=== PATIENT | male | born 1960 | race Caucasian/White ===

== ENCOUNTER 2017-07-16 16:15 | Emergency (ER) | payer SELFPAY ==
[2017-07-16 16:56] LABS: Hematocrit 40.2 % (42.0-52.0); Mean Cell Volume 86.3 fl (78-100); Mean Corpuscular Hgb Conc 34.8 g/dl (32-36); Mean Platelet Volume 10.8 fl (6.0-9.5); Neutrophil # 11.3 K/mm3 (1.3-6.0); Neutrophil % 74.5 % (42-75.0); Platelet Count 308 K/mm3 (150-450); Red Blood Count 4.66 M/mm3 (4.7-6.0); Red Cell Distribution Width 12.5 % (11.5-14.0); White Blood Count 15.2 K/mm3 (4.0-10.5)
[2017-07-16 17:13] LABS: Albumin * 4.2 gm/dl (3.4-5.0); Anion Gap 17.4 mmol/L (6.8-13.8); BUN/Creatinine Ratio 25.9 (9.0-21.6); Bilirubin, Total 0.4 mg/dL (0.0-1.1); CRP 3.6 mg/dL (0.0-0.9); Ca. Corrected For Albumin 8.4 mg/dL (8.4-10.2); Calcium * 8.9 mg/dL (7.9-10.9); Carbon Dioxide 25.5 mmol/L (24-32.6); Magnesium 1.8 mg/dL (1.2-2.8); Potassium 3.9 mmol/L (3.4-4.6); Total Protein 7.9 gm/dL (6.2-8.2)
--- NOTE | 2017-07-16 17:32 | ERNOTE ---
Lower Extremity HPI - General Lower Extremities Pain: knee: right - erythema, swelling and pain Time Seen by Provider: 07/16/17 16:30 Source: patient Exam Limitations: no limitations - Immun/Allergies/Home Medications Immunizations: IMMUNIZATION HX Immunizations Up to Date Yes History of Influenza Vaccine No Hx Pneumococcal Vaccination No Allergies/Adverse Reactions: Allergies Allergy/AdvReac Type Severity Reaction Status Date / Time No Known Allergies Allergy Unverified 07/16/17 16:29 Home Medications: HOME MEDICATIONS Dicloxacillin Sodium 500 mg PO Q6H #28 cap 07/16/17 [Last Taken Unknown] Naproxen [Naprosyn] 500 mg PO BID #60 tablet 07/16/17 [Last Taken Unknown] traMADol HCL [Ultram] 50 mg PO QID PRN #20 tablet 07/16/17 [Last Taken Unknown] - History of Present Illness Narrative: Patient complains of considerable pain in the right knee around the prepatellar area and infrapatellar region. Patient complains of painful weightbearing and considerable difficulty kneeling. Occurred: other - swelling and pain and been increasing over the last 24 hours Method of Injury: Reports: no apparent injury Loss of Consciousness: Reports: no loss of consciousness Modifying Factors - (Improves): Reports: rest Modifying Factors - (Worsens): Reports: movement Associated Symptoms: Reports: unable to bear weight - painful weightbearing Other Injuries: Reports: none Review of Systems - Review of Systems Constitutional: Present: See HPI EYE: Present: no symptoms reported ENT: Present: no symptoms reported Respiratory: Present: no symptoms reported Cardiology: Present: no symptoms reported Gastrointestinal/Abdominal: Present: no symptoms reported Genitourinary: Present: no symptoms reported Musculoskeletal: Present: joint pain, joint swelling Skin: Present: other - erythema around the right knee Neurological: Present: no symptoms reported Endocrine: Present: no symptoms reported Hematologic/Lymphatic: Present: no symptoms reported Psych: Present: no symptoms reported - Patient's Past Medical History Patient History - Medical: No pertinent hx Patient History - Cardiac/Respiratory: No pertinent hx Patient History - Cancer: No Hx of Cancer Patient History - Surgical Procedures: Hernia Repair Patient History - Other: None - Social History Living Situations: home Psych History: No pertinent hx Smoking Status: Current every day smoker Alcohol Use: occasionally - Immunizations Immunizations Up to Date: Yes Hx Pneumococcal Vaccination: No History of Influenza Vaccine: No Physical Exam - Physical Exam General Appearance: Present: wd/wn, alert, moderate distress Head Exam: Present: normal inspection Eye Exam: Normal inspection: bilateral, PERRL: bilateral Ears, Nose, Throat: Present: normal ENT inspection, H, normal pharynx Neck: Present: normal inspection, nontender Respiratory: Present: no respiratory distress, normal breath sounds, no accessory muscle use, chest nontender, lungs clear Cardiovascular/Chest: Present: regular rate, rhythm, no murmur, normal peripheral pulses Gastrointestinal/Abdominal: Present: normal bowel sounds, nontender, nondistended, soft, no organomegaly Rectal Exam: Present: deferred Back Exam: Present: normal inspection, normal range of motion Extremity Exam: Present: decreased range of motion, joint redness, extremity edema, other - the overwhelming preponderance of the swelling and erythema appears to be centered over the prepatellar bursa Neurological Exam: Present: alert, oriented, normal mood/affect Skin Exam: Present: warm/dry, other - erythema around the right knee joint Lymphatic Exam: Present: no adenopathy ED Progress - Results and Orders Patient's Lab Results:: I have reviewed the patient's lab results. - Vital Signs Patient's Vital Signs:: I have reviewed the patient's vital signs. Vital Signs: Vital Signs 07/16/17 16:23 Temperature 38.2 C H Pulse Rate 119 H Respiratory 17 Rate Blood Pressure 139/94 O2 Sat by Pulse 99 Oximetry - X-Ray X-Ray #1 X-Ray: knee Interpretation: Reviewed by me - Progress/Reassessment Chief Complaint: Lower Extremity Pain/ Injury Procedures Right Knee Anesthesia: 1% Lidocaine I & D Prep: betadine prep Blade Size: 16 K needle was placed into the right prepatellar bursa and moderate serosanguineous purulent material was removed and sent to lab Findings and Actions: purulent drainage moderate, cultures obtained, gram stain Complications: Pt panda procedure well Plan - Plan Plan: Cultures are sent to the lab, as well as cell count and Gram stain. Patient be started on antibiotics and he will call the orthopedic clinic for appointment. Departure Clinical Impression: Prepatellar bursitis, right knee - Departure Disposition: Home self-care Condition: Good Instructions: Prepatellar Bursitis With Rehab-SportsMed Additional Instructions: call Dr. Breder for an appointment in the AM Referrals: Andrew Romero MD [Staff Physician] - Prescriptions: Dicloxacillin Sodium 500 mg PO Q6H #28 cap Naproxen [Naprosyn] 500 mg PO BID #60 tablet traMADol HCL [Ultram] 50 mg PO QID PRN #20 tablet PRN Reason: Moderate Pain
[2017-07-16] MEDS ORDERED: MORPHINE SULFATE 4 MG/ML SYRG SC ONE (18:34)
[2017-07-16] MEDS ORDERED: MORPHINE SULFATE 4 MG/ML SYRG ONE (18:35)
[2017-07-16 18:37] VITALS: BP 144/96
[2017-07-16] MEDS ORDERED: AMOX TR/POTASSIUM CLAVULANATE 875 MG TABLET PO ONE (19:03)
[2017-07-16 19:05] LABS: Body Fluid Appearance TURBID (CLEAR); Body Fluid Color YELLOW (COLORLESS)
[2017-07-16] MEDS ORDERED: AMOX TR/POTASSIUM CLAVULANATE 875 MG TABLET ONE (19:10)
== END 2017-07-16 19:17 | disposition home or self-care (01) ==
LOC: ER 16:15
PROC: 0M9N3ZZ Drainage of Right Knee Bursa and Ligament, Percutaneous Approach (ICD-10-PCS; principal; 2017-07-16)
DX: M70.41 Prepatellar bursitis, right knee (principal); F17.200 Nicotine dependence, unspecified, uncomplicated

== ENCOUNTER 2017-07-28 13:56 | Inpatient (IN) | payer SELFPAY ==
[2017-07-28] MEDS ORDERED: PROMETHAZINE HCL 5 MG in DEXTROSE 5 % IN WATER 50 ML IV PRN ×2 (14:20)
[2017-07-28] MEDS ORDERED: MAGNESIUM HYDROXIDE 30 ML UDC PO PRN (14:20)
[2017-07-28] MEDS ORDERED: diphenhydrAMINE HCL 50 MG/ML VIAL IV PRN (14:20)
[2017-07-28] MEDS ORDERED: ACETAMINOPHEN 500 MG TABLET PO PRN (14:20)
[2017-07-28] MEDS ORDERED: ONDANSETRON HCL/PF 2 MG/ML VIAL IV PRN (14:20)
[2017-07-28] MEDS ORDERED: oxyCODONE HCL/ACETAMINOPHEN 1 TAB TABLET PO PRN (14:21)
[2017-07-28] MEDS: oxyCODONE HCL/ACETAMINOPHEN 1 TAB TABLET PO PRN ×2 (15:35→19:37)
[2017-07-28 17:47] LABS: Hematocrit 39.6 % (42.0-52.0); Hemoglobin 13.8 gm/dL (13.5-18.0); Mean Cell Volume 86.5 fl (78-100); Mean Corpuscular Hemoglobin 30.1 pg (27-31); Mean Corpuscular Hgb Conc 34.8 g/dl (32-36); Mean Platelet Volume 10.3 fl (6.0-9.5); Neutrophil # 6.2 K/mm3 (1.3-6.0); Neutrophil % 60.6 % (42-75.0); Platelet Count 395 K/mm3 (150-450); Red Blood Count 4.58 M/mm3 (4.7-6.0); Red Cell Distribution Width 12.4 % (11.5-14.0); White Blood Count 10.3 K/mm3 (4.0-10.5)
[2017-07-28] MEDS: VANCOMYCIN HCL 1.25 GM in NORMAL SALINE 250 ML IV SCH (18:03)
[2017-07-28 18:04] LABS: Anion Gap 15.2 mmol/L (6.8-13.8); BUN/Creatinine Ratio 25.9 (9.0-21.6); CRP 4.7 mg/dL (0.0-0.9); Calcium * 9.4 mg/dL (7.9-10.9); Estimated Creat Clear 101.8; Potassium 4.2 mmol/L (3.4-4.6)
[2017-07-28] MEDS: NICOTINE 14 MG PATC TD SCH (18:04)
[2017-07-28] MEDS: SENNOSIDES/DOCUSATE SODIUM 1 TAB TABLET PO SCH (21:33)
[2017-07-29] MEDS ORDERED: VANCOMYCIN HCL 1 GM in NORMAL SALINE 250 ML IV SCH (00:21)
[2017-07-29] MEDS: oxyCODONE HCL/ACETAMINOPHEN 1 TAB TABLET PO PRN ×5 (04:38→22:00)
[2017-07-29] MEDS: VANCOMYCIN HCL 1.25 GM in NORMAL SALINE 250 ML IV SCH ×2 (04:43→17:48)
[2017-07-29] MEDS: NICOTINE 14 MG PATC TD SCH ×2 (08:36→17:46)
[2017-07-29] MEDS: SENNOSIDES/DOCUSATE SODIUM 1 TAB TABLET PO SCH (21:13)
[2017-07-29] MEDS: LACTOBACILLUS ACIDOPHILUS 100 CAP BTL PO SCH (21:13)
[2017-07-29] MEDS: NYSTATIN 15 APPL BTL TP SCH (21:14)
[2017-07-30] MEDS: VANCOMYCIN HCL 1.25 GM in NORMAL SALINE 250 ML IV SCH (05:25)
[2017-07-30] MEDS: oxyCODONE HCL/ACETAMINOPHEN 1 TAB TABLET PO PRN ×5 (05:53→23:35)
[2017-07-30] MEDS: LACTOBACILLUS ACIDOPHILUS 100 CAP BTL PO SCH ×2 (08:03→20:05)
[2017-07-30] MEDS: NYSTATIN 15 APPL BTL TP SCH ×2 (09:02→22:28)
--- NOTE | 2017-07-30 09:21 | PN ---
Subjective - Date and Time Seen Date: 07/30/17 Time: 08:10 Subjective Narrative: Pt reports no acute events, he has been up walking. His pain is still consistent , has not significantly improved. Objective - Vitals Vitals: Last Vital Signs Temp 36.4 C L 07/30/17 08:06 Pulse 88 07/30/17 08:06 Resp 18 07/30/17 08:06 BP 142/87 07/30/17 08:06 Pulse Ox 97 07/30/17 08:06 - Abnormal Lab Findings Abnormal Lab Findings: Laboratory Last Values WBC 10.3 K/mm3 (4.0-10.5) 07/28/17 17:44 RBC 4.58 M/mm3 (4.7-6.0) L 07/28/17 17:44 Hgb 13.8 gm/dL (13.5-18.0) 07/28/17 17:44 Hct 39.6 % (42.0-52.0) L 07/28/17 17:44 MCV 86.5 fl (78-100) 07/28/17 17:44 MCH 30.1 pg (27-31) 07/28/17 17:44 MCHC 34.8 g/dl (32-36) 07/28/17 17:44 RDW 12.4 % (11.5-14.0) 07/28/17 17:44 Plt Count 395 K/mm3 (150-450) 07/28/17 17:44 MPV 10.3 fl (6.0-9.5) H 07/28/17 17:44 Immature Gran % (Auto) 0.30 % (0.001-0.429) 07/28/17 17:44 Immature Gran # (Auto) 0.03 K/mm3 (0.000-0.0310) 07/28/17 17:44 Neutrophils % 60.6 % (42-75.0) 07/28/17 17:44 Lymphocytes % 27.0 % (20-51) 07/28/17 17:44 Monocytes % 9.7 % (0.0-9) H 07/28/17 17:44 Eosinophils % 1.7 % (0.0-3.0) 07/28/17 17:44 Basophils % 0.7 % (0.0-1.0) 07/28/17 17:44 Nucleated RBC % 0.0 k/mm3 (0-1) 07/28/17 17:44 Neutrophils # 6.2 K/mm3 (1.3-6.0) H 07/28/17 17:44 Lymphocytes # 2.8 k/mm3 (1.5-3.5) 07/28/17 17:44 Monocytes # 1.0 k/mm3 (0.0-1.0) 07/28/17 17:44 Eosinophils # 0.2 k/mm3 (0.0-0.7) 07/28/17 17:44 Absolute Basophils 0.1 k/mm3 (0.0-0.1) 07/28/17 17:44 ESR 65 mm/hr (0-10) H 07/28/17 17:44 Sodium 138 mmol/L (132-142) 07/28/17 17:44 Plasma Sodium 138 mmol/L (130-142) 07/28/17 17:44 Potassium 4.2 mmol/L (3.4-4.6) 07/28/17 17:44 Chloride 100 mmol/L (97-106) 07/28/17 17:44 Carbon Dioxide 27.0 mmol/L (24-32.6) 07/28/17 17:44 Anion Gap 15.2 mmol/L (6.8-13.8) H 07/28/17 17:44 BUN 21 mg/dL (6-23) 07/28/17 17:44 Creatinine 0.81 mg/dL (0.4-1.4) 07/28/17 17:44 Est GFR (Non-Af Amer) 105 mL/min (60-130) 07/28/17 17:44 BUN/Creatinine Ratio 25.9 (9.0-21.6) H 07/28/17 17:44 Random Glucose 100 mg/dL (70-110) 07/28/17 17:44 Calcium 9.4 mg/dL (7.9-10.9) 07/28/17 17:44 C-Reactive Prot, Quant 4.7 mg/dL (0.0-0.9) H 07/28/17 17:44 - Exam Constitutional: Present: Alert, Oriented x3, Cooperative, No distress Respiratory: Present: no respiratory distress Extremity: Present: other - RLE--> area of moderate errythema and edema located over right prepatellar region, SILT, distal pulses 2+, ttp over patellar tendon Eye contact: Present: cooperative, good eye contact Thoughts: Present: normal thought pattern Assessment/Plan Plan Narrative: -56 y/o male presents with infectious prepatellar bursitis on 07/28, was admitted for IV antibiotics and observation - IV vancomycin for infectious prepatellar bursitis, condition has not shown significant improvement with addition of IV abx, will continue to monitor, re- evaluate later today, determine if surgical intervention is warranted - Continue pain control with oral pain medication - Status may be changed to inpatient status, due to use of continued abx and concern for the need of surgical intervention - WBAT - PO diet as tolerated - Problems/Diagnosis (1) Prepatellar bursitis, right knee Problem: Acute
--- NOTE | 2017-07-30 15:16 | PN ---
Subjective - Date and Time Seen Date: 07/29/17 Time: 08:00 Subjective Narrative: Swelling has reaccumulated as of this morning. Pain is the same as it was yesterday. No other complaints. Objective - Vitals Vitals: Last Vital Signs Temp 36.4 C L 07/30/17 14:03 Pulse 90 07/30/17 14:03 Resp 18 07/30/17 14:03 BP 155/95 07/30/17 14:03 Pulse Ox 97 07/30/17 14:03 - Exam Exam Narrative: Gen: A&O x3, NAD Resp: breathing non-labored on RA MSK: RLE--> pre-patellar bursal fluid collection with overlying erythema of skin , erythema extending distally - unchanged from clinic, diffuse tenderness over anterior knee, no effusion, minimal pain with knee ROM, SILT, distal pulses palpable Assessment/Plan Plan Narrative: 56 yo M w/ infectious R pre-patellar bursitis. - continue IV Vancomycin and monitor clinical progress - if no clinical improvement tomorrow, will consider surgical drainage on - oral pain meds - WBAT, ROM as tolerated - SCDs in bed - dispo: continue inpatient care - Problems/Diagnosis (1) Prepatellar bursitis, right knee Problem: Acute
[2017-07-30] MEDS: ceFAZolin SODIUM/DEXTROSE,ISO 2 GM/50 ML BAG IV SCH ×2 (15:23→23:36)
[2017-07-30] MEDS ORDERED: VANCOMYCIN HCL LEVEL XX ONE (17:00)
[2017-07-30] MEDS: NICOTINE 14 MG PATC TD SCH (17:02)
[2017-07-30] MEDS: SENNOSIDES/DOCUSATE SODIUM 1 TAB TABLET PO SCH (20:05)
[2017-07-30] MEDS: MAG HYDROX/ALUMINUM HYD/SIMETH 30 ML UDC PO PRN (22:28)
[2017-07-31] MEDS: oxyCODONE HCL/ACETAMINOPHEN 1 TAB TABLET PO PRN ×4 (06:52→20:57)
[2017-07-31] MEDS: ceFAZolin SODIUM/DEXTROSE,ISO 2 GM/50 ML BAG IV SCH ×3 (07:16→23:10)
[2017-07-31] MEDS: LACTOBACILLUS ACIDOPHILUS 100 CAP BTL PO SCH ×2 (08:46→21:37)
[2017-07-31] MEDS: NYSTATIN 15 APPL BTL TP SCH ×2 (08:47→21:37)
--- NOTE | 2017-07-31 09:01 | PN ---
Subjective - Date and Time Seen Date: 07/31/17 Time: 08:57 Objective Objective Narrative: Patient has had no acute events. He reports his pain remains constant. He reports his knee does not seem to have improved. He has no other compliants. - Vitals Vitals: Last Vital Signs Temp 36.5 C 07/31/17 08:08 Pulse 84 07/31/17 08:08 Resp 17 07/31/17 08:08 BP 136/75 07/31/17 08:08 Pulse Ox 96 07/31/17 08:08 - Abnormal Lab Findings Abnormal Lab Findings: Laboratory Last Values WBC 10.3 K/mm3 (4.0-10.5) 07/28/17 17:44 RBC 4.58 M/mm3 (4.7-6.0) L 07/28/17 17:44 Hgb 13.8 gm/dL (13.5-18.0) 07/28/17 17:44 Hct 39.6 % (42.0-52.0) L 07/28/17 17:44 MCV 86.5 fl (78-100) 07/28/17 17:44 MCH 30.1 pg (27-31) 07/28/17 17:44 MCHC 34.8 g/dl (32-36) 07/28/17 17:44 RDW 12.4 % (11.5-14.0) 07/28/17 17:44 Plt Count 395 K/mm3 (150-450) 07/28/17 17:44 MPV 10.3 fl (6.0-9.5) H 07/28/17 17:44 Immature Gran % (Auto) 0.30 % (0.001-0.429) 07/28/17 17:44 Immature Gran # (Auto) 0.03 K/mm3 (0.000-0.0310) 07/28/17 17:44 Neutrophils % 60.6 % (42-75.0) 07/28/17 17:44 Lymphocytes % 27.0 % (20-51) 07/28/17 17:44 Monocytes % 9.7 % (0.0-9) H 07/28/17 17:44 Eosinophils % 1.7 % (0.0-3.0) 07/28/17 17:44 Basophils % 0.7 % (0.0-1.0) 07/28/17 17:44 Nucleated RBC % 0.0 k/mm3 (0-1) 07/28/17 17:44 Neutrophils # 6.2 K/mm3 (1.3-6.0) H 07/28/17 17:44 Lymphocytes # 2.8 k/mm3 (1.5-3.5) 07/28/17 17:44 Monocytes # 1.0 k/mm3 (0.0-1.0) 07/28/17 17:44 Eosinophils # 0.2 k/mm3 (0.0-0.7) 07/28/17 17:44 Absolute Basophils 0.1 k/mm3 (0.0-0.1) 07/28/17 17:44 ESR 65 mm/hr (0-10) H 07/28/17 17:44 Sodium 138 mmol/L (132-142) 07/28/17 17:44 Plasma Sodium 138 mmol/L (130-142) 07/28/17 17:44 Potassium 4.2 mmol/L (3.4-4.6) 07/28/17 17:44 Chloride 100 mmol/L (97-106) 07/28/17 17:44 Carbon Dioxide 27.0 mmol/L (24-32.6) 07/28/17 17:44 Anion Gap 15.2 mmol/L (6.8-13.8) H 07/28/17 17:44 BUN 21 mg/dL (6-23) 07/28/17 17:44 Creatinine 0.81 mg/dL (0.4-1.4) 07/28/17 17:44 Est GFR (Non-Af Amer) 105 mL/min (60-130) 07/28/17 17:44 BUN/Creatinine Ratio 25.9 (9.0-21.6) H 07/28/17 17:44 Random Glucose 100 mg/dL (70-110) 07/28/17 17:44 Calcium 9.4 mg/dL (7.9-10.9) 07/28/17 17:44 C-Reactive Prot, Quant 4.7 mg/dL (0.0-0.9) H 07/28/17 17:44 - Exam Constitutional: Present: Alert, Oriented x3, Cooperative, No distress Respiratory: Present: no respiratory distress Extremity: Present: other - RLE--> area of errythema and edema of right prepatella region, SILT, dorsal pedis pulse 2+, 5/5 knee flexion and extension Assessment/Plan Plan Narrative: -56 y/o male with right prepatellar bursitis, been managed inpatient on IV abx for the past 3 days, no significant improvement, decision to take to OR for I&D of infectious right prepatellar bursitis on 07/31/[address] Romero - Continue IV ancef 2grams Q8H - WBAT, ROM as tolerated - NPO until post-op - Continue oral pain medications for pain control - Problems/Diagnosis (1) Prepatellar bursitis, right knee Problem: Acute
[2017-07-31] MEDS ORDERED: RINGER'S SOLUTION,LACTATED 1,000 ML IV ONE (09:40)
[2017-07-31] MEDS ORDERED: MORPHINE SULFATE 4 MG/ML SYRG IV PRN (10:55)
--- NOTE | 2017-07-31 11:08 | OR ---
Operative Report - Dictated Report Narrative: Date: 07/31/2017 Physician: Andrew Romero M.D. Design Engineering Technician: Nahid Mace PA-C Preoperative diagnosis: Infectious prepatellar bursitis of right knee Postoperative diagnosis: Infectious prepatellar bursitis of right knee Procedure: Irrigation and debridement of right knee prepatellar bursa Anesthesia: Gen. plus Local Complications: None Estimated blood loss: Less than 50 mL Tourniquet time: None Specimens: Swab and tissue cultures sent Drains: 10 Prydeinig round Hemovac Indications: Juan Is a 56 year-old male who was seen in the ED proximally 10 days ago for redness and swelling over the anterior aspect of the knee. His prepatellar bursa was aspirated in the ED and grew out staph epidermidis. He was placed on oral antibiotics with instructions to follow up in orthopedic clinic for evaluation. We contacted the patient about following up in our office he stated that he was doing better and did not wish to come in. We counseled him to closely monitor his clinical improvement and if there was any signs of worsening to call our office. We followed up with him on Friday this week and he noted that his swelling, redness, and pain were worsening despite being on oral antibiotics. He was brought into the orthopedic clinic where a repeat aspiration of his bursa was performed. This did not grow out anything as he had been on antibiotics for several days prior. I counseled him in clinic about his treatment options including continued nonoperative management with with IV antibiotics versus surgical irrigation and debridement. He wished to proceed with a trial of IV antibiotics. After 2 days of IV vancomycin and there was minimal clinical improvement and I counseled him that I recommended open surgical irrigation debridement and he wished to proceed. The risks, benefits, and alternatives were discussed including, but not limited to, , bleeding, infection, blood clots, nerve, tendon, ligament, blood vessel injury, persistent pain, arthrosis, need for additional procedures, and persistent symptoms. Procedure: After marking the correct extremity in the preoperative holding area, a timeout was performed in the operating room. IV antibiotics had been given that morning as scheduled and an additional preoperative dose was not given. A well- padded tourniquet was applied to the operative upper thigh. The leg was prepped and draped in a standard sterile fashion. Under tension and the anterior aspect of the knee. An approximately 3-1/2 cm longitudinal incision was made directly over the prepatellar bursa. We immediately encountered a large amount of bloody purulent fluid. Swab cultures were taken. Next we proceeded with a thorough mechanical debridement of the patellar bursa using combination of a rongeur and curettes. Tissue was sent for culture. The wound was then thoroughly inspected to ensure no communication with the knee joint. After a thorough mechanical debridement we copiously irrigated the wound with 6 L of low-pressure normal saline. Once we felt we had adequately debrided and irrigated the wound a 10 Prydeinig round Hemovac drain was placed in the wound. 1 g of ankle powder was placed in the wound. The wound was closed with interrupted 3-0 nylon. Dressings consisting of Xeroform, 4 x 4, soft roll, and an Celio were applied. All sponge, needle, blade, and instrument counts were correct prior to closing the wounds. The patient was awoken and transferred to the post-anesthesia care unit in stable condition.
[2017-07-31] MEDS: NICOTINE 14 MG PATC TD SCH (16:37)
[2017-07-31] MEDS: MAG HYDROX/ALUMINUM HYD/SIMETH 30 ML UDC PO PRN (20:57)
[2017-07-31] MEDS: SENNOSIDES/DOCUSATE SODIUM 1 TAB TABLET PO SCH (21:37)
[2017-08-01] MEDS: MAG HYDROX/ALUMINUM HYD/SIMETH 30 ML UDC PO PRN ×3 (02:28→20:34)
[2017-08-01] MEDS: oxyCODONE HCL/ACETAMINOPHEN 1 TAB TABLET PO PRN ×5 (02:29→20:29)
[2017-08-01] MEDS: ceFAZolin SODIUM/DEXTROSE,ISO 2 GM/50 ML BAG IV SCH ×3 (07:15→22:38)
[2017-08-01] MEDS: LACTOBACILLUS ACIDOPHILUS 100 CAP BTL PO SCH ×2 (08:09→20:31)
[2017-08-01] MEDS: NYSTATIN 15 APPL BTL TP SCH ×2 (08:10→20:30)
--- NOTE | 2017-08-01 09:21 | PN ---
Subjective - Date and Time Seen Date: 08/01/17 Time: 08:25 Subjective Narrative: Pt reports no acute events overnight. He states he does have moderate pain over his anterior patella. He has been able to ambulate without complication. Objective - Vitals Vitals: Last Vital Signs Temp 36.5 C 08/01/17 06:22 Pulse 89 08/01/17 06:22 Resp 16 08/01/17 06:22 BP 148/94 08/01/17 06:22 Pulse Ox 97 08/01/17 06:22 - Exam Constitutional: Present: Alert, Oriented x3, Cooperative, No distress Respiratory: Present: no respiratory distress Extremity: Present: other - RLE--> bandages in place c/d/i, SILT, 5/5 PF and DF , mild ttp over anterior knee, drain in place, with minimal output Assessment/Plan Plan Narrative: -56 y/o male post-op day #1 s/p I & D of right infectious prepatellar bursitis - Continue IV Ancef - PO diet as tolerated - WBAT as tolerated - Oral pain medication PRN - Maintain drain in place - Maintain surgical dressing in place - Will re-evaluate tomorrow, continue IV abx until improvement in symptoms - Problems/Diagnosis (1) Prepatellar bursitis, right knee Problem: Acute
[2017-08-01] MEDS: NICOTINE 14 MG PATC TD SCH (16:15)
[2017-08-01] MEDS: SENNOSIDES/DOCUSATE SODIUM 1 TAB TABLET PO SCH (20:32)
[2017-08-02] MEDS: oxyCODONE HCL/ACETAMINOPHEN 1 TAB TABLET PO PRN ×5 (05:21→22:51)
[2017-08-02] MEDS: ceFAZolin SODIUM/DEXTROSE,ISO 2 GM/50 ML BAG IV SCH ×3 (07:10→22:53)
[2017-08-02] MEDS: NYSTATIN 15 APPL BTL TP SCH ×2 (08:21→20:59)
[2017-08-02] MEDS: LACTOBACILLUS ACIDOPHILUS 100 CAP BTL PO SCH ×2 (08:21→21:00)
--- NOTE | 2017-08-02 14:04 | PN ---
Subjective - Date and Time Seen Date: 08/02/17 Time: 14:01 Subjective Narrative: Pt reports no acute events. Has been up ambulating without complications. His pain has improved, still mild over the anterior knee. Objective - Vitals Vitals: Last Vital Signs Temp 36.1 C L 08/02/17 10:48 Pulse 85 08/02/17 10:48 Resp 20 08/02/17 10:48 BP 141/83 08/02/17 10:48 Pulse Ox 97 08/02/17 10:48 - Exam Constitutional: Present: Alert, Oriented x3, Cooperative, No distress Respiratory: Present: no respiratory distress Extremity: Present: other - RLE--> bandages, c/d/i, no drainage from wound, small region of erythema over anteior knee, no significant edema, SILT, 5/5 PF/ DF, dorsal pedis pulse 2+ Eye contact: Present: cooperative Thoughts: Present: normal thought pattern Assessment/Plan Plan Narrative: -56 y/o male post-op day #2 s/p I & D of right infectious prepatellar bursitis - Continue IV Ancef - PO diet as tolerated - WBAT as tolerated - Oral pain medication PRN - Maintain drain in place - Dressing changed, no significant drainage from wound or in drain - Will re-evaluate tomorrow, continue IV abx - Problems/Diagnosis (1) Prepatellar bursitis, right knee Problem: Acute
[2017-08-02] MEDS: NICOTINE 14 MG PATC TD SCH (16:27)
[2017-08-02] MEDS: SENNOSIDES/DOCUSATE SODIUM 1 TAB TABLET PO SCH (21:00)
[2017-08-03] MEDS: oxyCODONE HCL/ACETAMINOPHEN 1 TAB TABLET PO PRN ×5 (04:49→23:15)
[2017-08-03] MEDS: ceFAZolin SODIUM/DEXTROSE,ISO 2 GM/50 ML BAG IV SCH ×3 (07:00→23:19)
[2017-08-03] MEDS: LACTOBACILLUS ACIDOPHILUS 100 CAP BTL PO SCH ×2 (08:49→21:13)
[2017-08-03] MEDS: NYSTATIN 15 APPL BTL TP SCH ×2 (08:50→21:12)
--- NOTE | 2017-08-03 14:05 | PN ---
Subjective - Date and Time Seen Date: 08/03/17 Time: 14:03 Subjective Narrative: Pt reports no acute events. He reports mild pain that is intermittent. Pt notes he has been able to ambulate without complications. Objective - Vitals Vitals: Last Vital Signs Temp 36.4 C L 08/03/17 12:00 Pulse 94 08/03/17 12:00 Resp 18 08/03/17 12:00 BP 151/85 08/03/17 12:00 Pulse Ox 95 08/03/17 12:00 - Exam Constitutional: Present: Alert, Oriented x3, Cooperative, No distress Respiratory: Present: no respiratory distress Extremity: Present: other - RLE--> bandages, c/d/i, SILT, dorsal pedis pulse 2+ , no significant edema, minimal erythema around incision site, no significant drainage from wound, drain in place Eye contact: Present: cooperative Thoughts: Present: normal thought pattern Assessment/Plan Plan Narrative: -56 y/o male post-op day #3 s/p I & D of right infectious prepatellar bursitis - Infection site seems to be improving, decreased erythema compared to yesterday , no accumulation of edema since compression wrap was removed - Continue IV Ancef - PO diet as tolerated - WBAT as tolerated - Oral pain medication PRN - Drain removed, bandages placed over drain insertion site - Dressing changed, no significant drainage from wound or in drain - Will re-evaluate tomorrow, continue IV abx - Problems/Diagnosis (1) Prepatellar bursitis, right knee Problem: Acute
[2017-08-03] MEDS: NICOTINE 14 MG PATC TD SCH (17:32)
[2017-08-03] MEDS: SENNOSIDES/DOCUSATE SODIUM 1 TAB TABLET PO SCH (21:11)
[2017-08-04] MEDS: ceFAZolin SODIUM/DEXTROSE,ISO 2 GM/50 ML BAG IV SCH (06:38)
[2017-08-04] MEDS: oxyCODONE HCL/ACETAMINOPHEN 1 TAB TABLET PO PRN (07:04)
[2017-08-04 07:52] VITALS: BP 147/82
--- NOTE | 2017-08-04 09:02 | DS ---
(1) Prepatellar bursitis, right knee Problem: Acute Description of Stay: Pt is a 56 y/o male who was admitted after trials on 2 separate oral antibiotics , and a positive culture for staph epi. from his right knee prepatellar bursitis. Pt was dx with infectious prepatellar bursitis. Once admitted pt was began on IV abx with vancomycin, later transitioned to ancef. Pt after 2 days of IV abx had no significant clinic improvement and a reaccumulation of edema and continued erythema occurred, so the decision was made to preform and incision and drainage of his right prepatellar bursitis on 07/31/[address] Romero. Surgery was completed without complication, a drain was placed during the procedure. Pt recovered with no complication. He continued on IV abx with ancef, drain was removed on 08/30/17 with minimal production. Bandages have been changes, no reaccumulation of edema or erythema has occurred. Pt pain has decreased, is well controlled on PO pain medication. Will transition to oral abx , and continue oral pain medication currently. Pt has been WBAT and ROM as tolerated. Will f/u at 2 weeks post-op in the orthopedic outpatient clinic with Dr. Romero. Procedures Performed: see notes below - Incison and Drainage of right prepatllar bursitis Discharge Disposition: Home self care Disposition: Home self-care Condition: Good Discharge Activity: Activity as tolerated, Weight bearing Discharge Diet: General/regular food Problem Oriented Discharge Instructions to Patient/Family: Bursitis, Easy-to- Read Print Language ([place] or [place] Citizen Available): [place] Prescriptions (Any new or edited meds): Cephalexin Monohydrate [Keflex] 500 mg PO Q12H 7 Days #14 cap oxyCODONE HCL/ACETAMINOPHEN [Percocet 5 MG/325 MG] 1 - 2 tab PO Q6H PRN #30 tab PRN Reason: surgery Complete Home Medications List: Complete Home Medication List: Dicloxacillin Sodium 500 mg PO Q6H #28 cap 07/16/17 Naproxen [Naprosyn] 500 mg PO BID #60 tablet 07/16/17 traMADol HCL [Ultram] 50 mg PO QID PRN #20 tablet 07/16/17 Cephalexin Monohydrate [Keflex] 500 mg PO Q12H 7 Days #14 cap 08/04/17 oxyCODONE HCL/ACETAMINOPHEN [Percocet 5 MG/325 MG] 1 - 2 tab PO Q6H PRN #30 tab 08/04/17
[2017-08-04] MEDS: LACTOBACILLUS ACIDOPHILUS 100 CAP BTL PO SCH (09:04)
[2017-08-04] MEDS: NYSTATIN 15 APPL BTL TP SCH (09:05)
== END 2017-08-04 10:31 | disposition home or self-care (01) | DRG 502 ==
LOC: MS 14:55 → OBSVTOIN 07-30 14:55
PROVIDERS: ADMIT Orthopaedic Surgery; ATTEND Orthopaedic Surgery
PROC: 0M9N00Z Drainage of Right Knee Bursa and Ligament with Drainage Device, Open Approach (ICD-10-PCS; 2017-07-31)
PROC: 0MBN0ZZ Excision of Right Knee Bursa and Ligament, Open Approach (ICD-10-PCS; principal; 2017-07-31 11:00)
DX: M71.161 Other infective bursitis, right knee (principal); F17.210 Nicotine dependence, cigarettes, uncomplicated